=== PATIENT | female | born 1960 | race Caucasian/White ===

== ENCOUNTER 2016-11-30 22:53 | Inpatient (IN) | payer MEDICAID ==
[~2016-11-30] VITALS: Ht 167.6 cm; Wt 89.9 kg
[~2016-11-30 22:53] MED LIST: CHLO25TA PO; HYDR-3341 PO; HYDR25TA6 PO; LEVO50TA PO; LISI-167 PO; SERT100T5 PO
[2016-11-30] MEDS ORDERED: SODIUM CHLORIDE 0.9% 1,000ML IVBOLUS ONE (23:30)
[2016-11-30] MEDS ORDERED: SODIUM CHLORIDE FLUSH 10ML SYR IVF ONE (23:30)
[2016-11-30 23:44] LABS: BLOOD UREA NITROGEN 20 mg/dL (7-18)
[2016-11-30 23:50] LABS: ASPARTATE AMINO TRANSFERASE 8 U/L (15-37); IS PT STATUS REG ER OR PRE ER? YES
[2016-12-01 02:06] VITALS: BP 133/78
[2016-12-01] MEDS ORDERED: PNEUMOCOCCAL 23 VACCINE IM-VACC ONE (03:00)
[2016-12-01] MEDS: ENOXAPARIN 40 MG/0.4 ML SQ SCH (04:02)
[2016-12-01] MEDS: POTASSIUM CHLORIDE 20 MEQ, MAGNESIUM SULFATE 1 GM, THIAMINE 100 MG, FOLIC ACID 1 MG, MV... IV SCH (04:02)
[2016-12-01 05:14] LABS: IS PT STATUS REG ER OR PRE ER? NO
[2016-12-01] MEDS ORDERED: CALCIUM CHLORIDE 13.6 MEQ in SODIUM CHLORIDE 0.9% 100 ML IV ONE (05:30)
[2016-12-01] MEDS: ATORVASTATIN 80 MG TABLET PO SCH ×2 (06:34→22:06)
[2016-12-01] MEDS: ASPIRIN 81 MG TABLET CHEW PO SCH (08:17)
[2016-12-01 08:30] VITALS: BP 125/72
[2016-12-01] MEDS ORDERED: REGADENOSON 0.4 MG/5 ML SYRINGE ONE (11:37)
[2016-12-01 13:53] LABS: IS PT STATUS REG ER OR PRE ER? NO
[2016-12-01 15:00] VITALS: BP 155/78
[2016-12-01 20:00] VITALS: BP 129/75
[2016-12-02] MEDS: POTASSIUM CHLORIDE 20 MEQ, MAGNESIUM SULFATE 1 GM, THIAMINE 100 MG, FOLIC ACID 1 MG, MV... IV SCH (01:42)
[2016-12-02 01:43] VITALS: BP 122/74
[2016-12-02] MEDS: METOPROLOL SUCCINATE 25 MG TAB.ER.24H PO SCH (05:21)
[2016-12-02] MEDS: ENOXAPARIN 40 MG/0.4 ML SQ SCH (05:21)
[2016-12-02] MEDS ORDERED: SODIUM CHLORIDE 0.9% 1,000 ML IV SCH (06:00)
[2016-12-02 06:34] LABS: BLOOD UREA NITROGEN 21 mg/dL (7-18)
[2016-12-02] MEDS: ASPIRIN 81 MG TABLET CHEW PO SCH (08:26)
[2016-12-02] MEDS: LOSARTAN 25MG TABLET PO SCH ×2 (08:26→21:17)
[2016-12-02] MEDS ORDERED: LOSARTAN 25MG TABLET PO SCH (09:00)
[2016-12-02 09:32] VITALS: BP 116/63
[2016-12-02] MEDS ORDERED: HEPARIN 1,000 UNITS/ML, 10ML ONE (12:06)
[2016-12-02] MEDS ORDERED: MIDAZOLAM 1 MG/ML, 5ML ONE (12:06)
[2016-12-02] MEDS ORDERED: TICAGRELOR 90 MG TABLET ONE (12:06)
[2016-12-02] MEDS ORDERED: FENTANYL PF 100 MCG/2ML ONE ×2 (12:06→12:43)
[2016-12-02] MEDS ORDERED: BIVALIRUDIN 250 MG ONE ×2 (12:06→12:24)
[2016-12-02] MEDS ORDERED: VERAPAMIL 2.5 MG/ML, 2ML ONE (12:06)
[2016-12-02] MEDS ORDERED: LIDOCAINE 2%, 20ML ONE (12:07)
[2016-12-02] MEDS ORDERED: ACETAMINOPHEN 325 MG TABLET PO PRN (13:30)
[2016-12-02 14:00] VITALS: BP 144/80
[2016-12-02] MEDS ORDERED: CHLORHEXIDINE MOUTHWASH 15 ML UDC MM PRN (16:00)
[2016-12-02] MEDS ORDERED: METOPROLOL TARTRATE 25 MG TABLET PO ONE (16:00)
[2016-12-02] MEDS ORDERED: INSULIN ASPART 100 UNITS/ML, PEN SQ-INSULIN SCH (16:00)
[2016-12-02 16:32] LABS: ASPARTATE AMINO TRANSFERASE 12 U/L (15-37); BLOOD UREA NITROGEN 16 mg/dL (7-18)
[2016-12-02 17:33] VITALS: BP 128/82
[2016-12-02 19:34] VITALS: BP 149/87
[2016-12-02] MEDS: ATORVASTATIN 80 MG TABLET PO SCH (21:17)
[2016-12-02] MEDS: MUPIROCIN OINT 2%, 22GM TP SCH (21:17)
[2016-12-03 02:53] VITALS: BP 119/70
[2016-12-03] MEDS: ENOXAPARIN 40 MG/0.4 ML SQ SCH (03:08)
[2016-12-03] MEDS: POTASSIUM CHLORIDE 20 MEQ, MAGNESIUM SULFATE 1 GM, THIAMINE 100 MG, FOLIC ACID 1 MG, MV... IV SCH (03:08)
[2016-12-03] MEDS: METOPROLOL SUCCINATE 25 MG TAB.ER.24H PO SCH (06:28)
[2016-12-03 07:11] VITALS: BP 160/78
[2016-12-03] MEDS ORDERED: VANCOMYCIN 1,200 MG in SODIUM CHLORIDE 0.9% 250 ML IVPB PRN ×2 (07:30→13:30)
[2016-12-03] MEDS ORDERED: CEFUROXIME 1.5 GM in SODIUM CHLORIDE 0.9% 50 ML IVPB PRN ×2 (07:30→13:30)
[2016-12-03] MEDS: ASPIRIN 81 MG TABLET CHEW PO SCH (09:00)
[2016-12-03] MEDS: LOSARTAN 25MG TABLET PO SCH ×2 (09:00→22:15)
[2016-12-03] MEDS: MUPIROCIN OINT 2%, 22GM TP SCH (10:04)
[2016-12-03 10:05] VITALS: BP_SYST 143; BP_SYST 151; BP_DIAS 73; BP_DIAS 84
[2016-12-03] MEDS ORDERED: MIDAZOLAM 10MG/2 ML ONE (12:03)
[2016-12-03] MEDS ORDERED: FENTANYL PF 1000 MCG/20ML ONE (12:03)
[2016-12-03] MEDS ORDERED: PROPOFOL 10 MG/ML, 20ML ONE (12:26)
[2016-12-03] MEDS ORDERED: ROCURONIUM 10 MG/ML ONE (12:26)
[2016-12-03] MEDS ORDERED: POTASSIUM CHLORIDE 80 MEQ, SODIUM BICARBONATE 8.4% 10 MEQ, MAGNESIUM SULFATE 0.5 GM, LI... IV PRN (13:30)
[2016-12-03] MEDS ORDERED: EPINEPHRINE 2 MG in SODIUM CHLORIDE 0.9% 248 ML IV SCH (13:30)
[2016-12-03] MEDS ORDERED: MANNITOL PMX 20% 500 ML IVPB PRN (13:30)
[2016-12-03] MEDS ORDERED: REGULAR INSULIN 62.5 UNITS in SODIUM CHLORIDE 0.9% 249.375 ML IV PRN ×2 (13:30→15:41)
[2016-12-03] MEDS ORDERED: DEXMEDETOMIDINE 200 MCG in SODIUM CHLORIDE 0.9% 48 ML IV SCH (13:30)
[2016-12-03] MEDS ORDERED: ALBUMIN HUMAN 5% 500 ML IV ONE (13:30)
[2016-12-03] MEDS ORDERED: PHENYLEPHRINE 10 MG in SODIUM CHLORIDE 0.9% 249 ML IV PRN ×2 (13:30→15:41)
[2016-12-03] MEDS ORDERED: PAPAVERINE 30 MG/ML, 2ML IVPush ONE (14:17)
[2016-12-03] MEDS ORDERED: HEPARIN 1,000 UNITS/ML, 30ML IVPush ONE (14:19)
[2016-12-03] MEDS ORDERED: NITROGLYCERIN/D5W PMX 250 ML IV PRN (15:41)
[2016-12-03] MEDS ORDERED: DEXMEDETOMIDINE 200 MCG in SODIUM CHLORIDE 0.9% 48 ML IV PRN (15:41)
[2016-12-03] MEDS ORDERED: DOBUTAMINE 250 MG in SODIUM CHLORIDE 0.9% 230 ML IV PRN (15:41)
[2016-12-03] MEDS ORDERED: SODIUM CHLORIDE 0.9% 1,000 ML IV PRN (15:41)
[2016-12-03] MEDS ORDERED: ACETAMINOPHEN 325 MG TABLET PO PRN (16:00)
[2016-12-03] MEDS ORDERED: ACETAMINOPHEN 650 MG SUPP PR PRN (16:00)
[2016-12-03] MEDS ORDERED: ONDANSETRON 2MG/ML, 2ML IVPush PRN (16:00)
[2016-12-03] MEDS ORDERED: VANCOMYCIN 1,200 MG in SODIUM CHLORIDE 0.9% 250 ML IVPB SCH (16:00)
[2016-12-03] MEDS ORDERED: DEXTROSE 50%, 50ML SYRINGE IVPush PRN (16:00)
[2016-12-03] MEDS ORDERED: GLUCAGON 1 MG IM PRN (16:00)
[2016-12-03] MEDS ORDERED: BISACODYL 10 MG SUPP PR PRN (16:00)
[2016-12-03] MEDS ORDERED: EPINEPHRINE 2 MG in SODIUM CHLORIDE 0.9% 248 ML IV PRN (16:00)
[2016-12-03] MEDS ORDERED: CEFUROXIME 1.5 GM in SODIUM CHLORIDE 0.9% 50 ML IVPB SCH (16:00)
[2016-12-03] MEDS ORDERED: DEXTROSE 4 GM TAB.CHEW PO PRN (16:00)
[2016-12-03] MEDS ORDERED: MEPERIDINE/PF 25MG/0.5ML IVPush PRN (16:00)
[2016-12-03] MEDS ORDERED: PROCHLORPERAZINE 5 MG/ML, 2ML IVPush PRN (16:00)
[2016-12-03] MEDS ORDERED: MIDAZOLAM 1 MG/ML, 5ML IVPush PRN (16:00)
[2016-12-03] MEDS: KSCALE TO 4.5 IV SCH ×2 (16:00→22:00)
[2016-12-03] MEDS ORDERED: SODIUM BICARB 8.4%, 50ML SYRINGE IV PRN (16:00)
[2016-12-03] MEDS ORDERED: BISACODYL 5 MG EC TABLET PO PRN (16:00)
[2016-12-03] MEDS ORDERED: PROTAMINE SULFATE 10 MG/ML, 25ML ONE (16:06)
[2016-12-03] MEDS ORDERED: AMINOCAPROIC ACID 250 MG/ML, 20ML ONE (16:06)
[2016-12-03] MEDS ORDERED: HEPARIN 1,000 UNITS/ML, 30ML ONE (16:06)
[2016-12-03] MEDS ORDERED: CALCIUM CHLORIDE 10%, 10ML SYR ONE (16:06)
[2016-12-03] MEDS ORDERED: ALBUMIN HUMAN 25% 50 ML ONE (16:06)
[2016-12-03] MEDS ORDERED: LIDOCAINE 2% 100MG/5ML SYRINGE ONE (16:06)
[2016-12-03 16:13] LABS: ABG COLLECTION SITE ARTERIAL LINE
[2016-12-03] MEDS: morphine SULFATE 10 MG/ML, 1ML IVPush PRN ×3 (16:29→21:01)
[2016-12-03] MEDS: MAGNESIUM SULFATE 1 GM in SODIUM CHLORIDE 0.9% 50 ML IVPB SCH (16:58)
[2016-12-03] MEDS ORDERED: POTASSIUM CHLORIDE 20 MEQ in SODIUM CHLORIDE 0.9% 250 ML IV ONE (18:30)
[2016-12-03] MEDS ORDERED: POTASSIUM CHLORIDE PMX 100 ML IVPB ONE (18:30)
[2016-12-03] MEDS: LACTATED RINGERS 500 ML IVBOLUS PRN ×2 (20:08→21:45)
[2016-12-03] MEDS: SODIUM CHLORIDE FLUSH 10ML SYR IVF SCH (21:33)
[2016-12-03] MEDS: DOCUSATE 100 MG CAPSULE PO SCH (22:15)
[2016-12-03] MEDS: ATORVASTATIN 80 MG TABLET PO SCH (22:15)
[2016-12-03] MEDS: MUPIROCIN OINT 2%, 22GM NAS SCH (22:16)
[2016-12-03] MEDS: HYDROcodone/APAP 10/325 MG TABLET PO PRN (22:36)
[2016-12-03] MEDS: OXYcodone IR 5MG TABLET PO PRN (23:56)
[2016-12-03] MEDS: CEFUROXIME 1.5 GM in SODIUM CHLORIDE 0.9% 50 ML IVPB SCH (23:59)
[2016-12-04] MEDS: INSULIN ASPART 100 UNITS/ML, PEN SQ-INSULIN PRN ×2 (00:14→02:12)
[2016-12-04] MEDS: VANCOMYCIN 1,200 MG in SODIUM CHLORIDE 0.9% 250 ML IVPB SCH ×2 (01:29→13:48)
[2016-12-04] MEDS: POTASSIUM CHLORIDE 20 MEQ, MAGNESIUM SULFATE 1 GM, THIAMINE 100 MG, FOLIC ACID 1 MG, MV... IV SCH (01:33)
[2016-12-04 03:57] LABS: ABG COLLECTION SITE NOT DOCUMENTED
[2016-12-04] MEDS: KSCALE TO 4.5 IV SCH ×3 (04:00→16:00)
[2016-12-04 04:05] LABS: BLOOD UREA NITROGEN 11 mg/dL (7-18)
[2016-12-04] MEDS: HYDROcodone/APAP 10/325 MG TABLET PO PRN ×2 (05:20→13:53)
[2016-12-04] MEDS: INSULIN ASPART 100 UNITS/ML, PEN SQ-INSULIN SCH ×4 (05:20→21:00)
[2016-12-04] MEDS: OXYcodone IR 5MG TABLET PO PRN ×2 (07:43→21:05)
[2016-12-04] MEDS: LOSARTAN 25MG TABLET PO SCH ×2 (09:00→23:13)
[2016-12-04] MEDS: FUROSEMIDE 20 MG/2 ML IV SCH (09:03)
[2016-12-04] MEDS: DOCUSATE 100 MG CAPSULE PO SCH ×2 (09:04→21:05)
[2016-12-04] MEDS: PANTOPRAZOLE 40 MG IV IVPush SCH (09:04)
[2016-12-04] MEDS: MUPIROCIN OINT 2%, 22GM NAS SCH ×2 (09:04→23:13)
[2016-12-04] MEDS: SODIUM CHLORIDE FLUSH 10ML SYR IVF SCH ×3 (09:04→23:14)
[2016-12-04] MEDS: ASPIRIN 81 MG TABLET EC PO SCH (09:04)
[2016-12-04] MEDS: METOPROLOL TARTRATE 25 MG TABLET PO/NG SCH ×2 (09:05→21:05)
[2016-12-04] MEDS: CEFUROXIME 1.5 GM in SODIUM CHLORIDE 0.9% 50 ML IVPB SCH (12:48)
[2016-12-04] MEDS ORDERED: POTASSIUM CHLORIDE PMX 100 ML IV ONE (13:00)
[2016-12-04] MEDS: CHLORHEXIDINE MOUTHWASH 15 ML UDC MM SCH (16:00)
[2016-12-04] MEDS: MAGNESIUM SULFATE 1 GM in SODIUM CHLORIDE 0.9% 50 ML IVPB SCH (16:55)
[2016-12-04] MEDS ORDERED: SIMVASTATIN 20 MG TABLET PO SCH (21:00)
[2016-12-04 21:12] VITALS: BP 121/73
[2016-12-04] MEDS: ATORVASTATIN 80 MG TABLET PO SCH (23:13)
[2016-12-05] MEDS: OXYcodone IR 5MG TABLET PO PRN ×5 (01:06→20:21)
[2016-12-05] MEDS: POTASSIUM CHLORIDE 20 MEQ, MAGNESIUM SULFATE 1 GM, THIAMINE 100 MG, FOLIC ACID 1 MG, MV... IV SCH (01:06)
[2016-12-05 01:07] VITALS: BP 126/77
[2016-12-05] MEDS: CHLORHEXIDINE MOUTHWASH 15 ML UDC MM SCH ×2 (05:06→17:12)
[2016-12-05 05:46] LABS: BLOOD UREA NITROGEN 12 mg/dL (7-18)
[2016-12-05 06:59] VITALS: BP 113/75
[2016-12-05] MEDS: INSULIN ASPART 100 UNITS/ML, PEN SQ-INSULIN SCH ×4 (07:00→20:26)
[2016-12-05] MEDS: DOCUSATE 100 MG CAPSULE PO SCH ×2 (08:20→20:22)
[2016-12-05] MEDS: SODIUM CHLORIDE FLUSH 10ML SYR IVF SCH ×4 (08:21→20:22)
[2016-12-05] MEDS: FUROSEMIDE 20 MG/2 ML IV SCH (08:21)
[2016-12-05] MEDS: PANTOPRAZOLE 40 MG IV IVPush SCH (08:21)
[2016-12-05] MEDS: MUPIROCIN OINT 2%, 22GM NAS SCH ×2 (08:21→20:23)
[2016-12-05] MEDS: ASPIRIN 81 MG TABLET EC PO SCH (08:22)
[2016-12-05] MEDS: METOPROLOL TARTRATE 25 MG TABLET PO/NG SCH ×2 (08:22→20:22)
[2016-12-05] MEDS: LOSARTAN 25MG TABLET PO SCH ×2 (08:22→20:22)
[2016-12-05] MEDS: POTASSIUM CHLORIDE 10 MEQ TABLET.ER PO SCH (08:22)
[2016-12-05] MEDS ORDERED: ENOXAPARIN 40 MG/0.4 ML SQ SCH (09:00)
[2016-12-05] MEDS ORDERED: FUROSEMIDE 20 MG/2 ML IV SCH (09:00)
[2016-12-05 12:54] VITALS: BP 132/78
[2016-12-05] MEDS: MAGNESIUM SULFATE 1 GM in SODIUM CHLORIDE 0.9% 50 ML IVPB SCH (17:11)
[2016-12-05 20:16] VITALS: BP 105/61
[2016-12-05] MEDS: ATORVASTATIN 80 MG TABLET PO SCH (20:23)
[2016-12-06] VITALS (8 sets, daily range): BP systolic 81–101; BP diastolic 32–68
[2016-12-06] MEDS: OXYcodone IR 5MG TABLET PO PRN ×4 (01:38→20:41)
[2016-12-06] MEDS: POTASSIUM CHLORIDE 20 MEQ, MAGNESIUM SULFATE 1 GM, THIAMINE 100 MG, FOLIC ACID 1 MG, MV... IV SCH (01:39)
[2016-12-06] MEDS: CHLORHEXIDINE MOUTHWASH 15 ML UDC MM SCH (05:01)
[2016-12-06 05:45] LABS: BLOOD UREA NITROGEN 15 mg/dL (7-18)
[2016-12-06] MEDS: PANTOPRAZOLE 40 MG IV IVPush SCH (08:18)
[2016-12-06] MEDS: MUPIROCIN OINT 2%, 22GM NAS SCH ×2 (08:18→21:59)
[2016-12-06] MEDS: LOSARTAN 25MG TABLET PO SCH ×2 (08:18→21:00)
[2016-12-06] MEDS: SODIUM CHLORIDE FLUSH 10ML SYR IVF SCH ×4 (08:19→22:01)
[2016-12-06] MEDS: DOCUSATE 100 MG CAPSULE PO SCH ×2 (08:20→21:59)
[2016-12-06] MEDS: METOPROLOL TARTRATE 25 MG TABLET PO/NG SCH ×2 (08:20→21:00)
[2016-12-06] MEDS: CLOPIDOGREL 75 MG TABLET PO SCH (08:20)
[2016-12-06] MEDS: INSULIN ASPART 100 UNITS/ML, PEN SQ-INSULIN SCH ×4 (08:28→21:59)
[2016-12-06] MEDS: ASPIRIN 81 MG TABLET EC PO SCH (08:32)
[2016-12-06] MEDS: POTASSIUM CHLORIDE 10 MEQ TABLET.ER PO SCH (08:32)
[2016-12-06] MEDS ORDERED: CLOPIDOGREL 75 MG TABLET PO SCH (09:00)
[2016-12-06] MEDS: ENOXAPARIN 40 MG/0.4 ML SQ SCH (21:00)
[2016-12-06] MEDS: FUROSEMIDE 20 MG/2 ML IV SCH (21:00)
[2016-12-06] MEDS: ATORVASTATIN 80 MG TABLET PO SCH (21:59)
[2016-12-07 01:56] VITALS: BP 95/67
[2016-12-07] MEDS: POTASSIUM CHLORIDE 20 MEQ, MAGNESIUM SULFATE 1 GM, THIAMINE 100 MG, FOLIC ACID 1 MG, MV... IV SCH (02:06)
[2016-12-07] MEDS: OXYcodone IR 5MG TABLET PO PRN ×3 (05:26→14:06)
[2016-12-07 06:26] LABS: BLOOD UREA NITROGEN 18 mg/dL (7-18)
[2016-12-07 07:05] VITALS: BP 102/66
[2016-12-07] MEDS: INSULIN ASPART 100 UNITS/ML, PEN SQ-INSULIN SCH (08:30)
[2016-12-07] MEDS ORDERED: LOSARTAN 25MG TABLET PO SCH (09:00)
[2016-12-07] MEDS: PANTOPRAZOLE 40 MG IV IVPush SCH (09:12)
[2016-12-07] MEDS: ASPIRIN 81 MG TABLET EC PO SCH (09:13)
[2016-12-07] MEDS: MUPIROCIN OINT 2%, 22GM NAS SCH ×2 (09:13→20:35)
[2016-12-07] MEDS: CLOPIDOGREL 75 MG TABLET PO SCH (09:13)
[2016-12-07] MEDS: METOPROLOL TARTRATE 25 MG TABLET PO/NG SCH ×2 (09:13→20:36)
[2016-12-07] MEDS: POTASSIUM CHLORIDE 10 MEQ TABLET.ER PO SCH (09:13)
[2016-12-07] MEDS: DOCUSATE 100 MG CAPSULE PO SCH ×2 (09:13→20:36)
[2016-12-07] MEDS: SODIUM CHLORIDE FLUSH 10ML SYR IVF SCH ×4 (09:14→20:35)
[2016-12-07] MEDS: FUROSEMIDE 20 MG/2 ML IV SCH (11:30)
[2016-12-07 13:15] VITALS: BP 108/68
[2016-12-07] MEDS: MAGNESIUM HYDROXIDE 8%, 30ML UDC PO PRN (14:06)
[2016-12-07] MEDS: HYDROcodone/APAP 10/325 MG TABLET PO PRN (18:43)
[2016-12-07 19:26] VITALS: BP 104/68
[2016-12-07 20:26] VITALS: BP 105/66
[2016-12-07] MEDS: ENOXAPARIN 40 MG/0.4 ML SQ SCH (20:36)
[2016-12-07] MEDS: ATORVASTATIN 80 MG TABLET PO SCH (20:36)
[2016-12-08] MEDS: OXYcodone IR 5MG TABLET PO PRN (01:24)
[2016-12-08 02:01] VITALS: BP 139/73
[2016-12-08 05:19] LABS: BLOOD UREA NITROGEN 18 mg/dL (7-18)
[2016-12-08] MEDS: HYDROcodone/APAP 10/325 MG TABLET PO PRN ×4 (07:46→23:39)
[2016-12-08] MEDS: DOCUSATE 100 MG CAPSULE PO SCH ×2 (07:47→19:59)
[2016-12-08] MEDS: PANTOPRAZOLE 40 MG IV IVPush SCH (07:47)
[2016-12-08] MEDS: ASPIRIN 81 MG TABLET EC PO SCH (07:47)
[2016-12-08] MEDS: METOPROLOL TARTRATE 25 MG TABLET PO/NG SCH ×2 (07:47→19:59)
[2016-12-08] MEDS: FOLIC ACID 1 MG TABLET PO SCH (07:47)
[2016-12-08] MEDS: THIAMINE 100MG TABLET PO SCH (07:47)
[2016-12-08] MEDS: POTASSIUM CHLORIDE 10 MEQ TABLET.ER PO SCH (07:47)
[2016-12-08] MEDS: FUROSEMIDE 20 MG TABLET PO SCH (07:47)
[2016-12-08] MEDS: CLOPIDOGREL 75 MG TABLET PO SCH (07:47)
[2016-12-08] MEDS: SODIUM CHLORIDE FLUSH 10ML SYR IVF SCH ×4 (07:48→20:00)
[2016-12-08] MEDS: MUPIROCIN OINT 2%, 22GM NAS SCH (07:48)
[2016-12-08 07:55] VITALS: BP 122/77
[2016-12-08 15:30] VITALS: BP 112/72
[2016-12-08 19:05] VITALS: BP 119/80
[2016-12-08] MEDS: ENOXAPARIN 40 MG/0.4 ML SQ SCH (19:59)
[2016-12-08] MEDS: ATORVASTATIN 80 MG TABLET PO SCH (19:59)
[2016-12-09 03:28] VITALS: BP 102/62
[2016-12-09 06:11] LABS: BLOOD UREA NITROGEN 17 mg/dL (7-18)
[2016-12-09 06:40] VITALS: BP 129/78
[2016-12-09] MEDS ORDERED: ASPI-621 PO (07:06)
[2016-12-09] MEDS ORDERED: POTA10TA5 PO (07:06)
[2016-12-09] MEDS ORDERED: DOCU-30 PO (07:06)
[2016-12-09] MEDS ORDERED: THIA100T6 PO (07:06)
[2016-12-09] MEDS ORDERED: FOLI-17 PO (07:06)
[2016-12-09] MEDS ORDERED: FURO20TA3 PO (07:06)
[2016-12-09] MEDS ORDERED: CLOP75TA PO (07:06)
[2016-12-09] MEDS ORDERED: HYDR-3307 PO (07:06)
[2016-12-09] MEDS ORDERED: METO25TA35 PO/NG (07:06)
[2016-12-09] MEDS ORDERED: ATOR80TA75 PO (07:06)
[2016-12-09] MEDS: CLOPIDOGREL 75 MG TABLET PO SCH (08:49)
[2016-12-09] MEDS: METOPROLOL TARTRATE 25 MG TABLET PO/NG SCH (08:49)
[2016-12-09] MEDS: THIAMINE 100MG TABLET PO SCH (08:49)
[2016-12-09] MEDS: ASPIRIN 81 MG TABLET EC PO SCH (08:50)
[2016-12-09] MEDS: DOCUSATE 100 MG CAPSULE PO SCH (08:50)
[2016-12-09] MEDS: FOLIC ACID 1 MG TABLET PO SCH (08:50)
[2016-12-09] MEDS: POTASSIUM CHLORIDE 10 MEQ TABLET.ER PO SCH (08:50)
[2016-12-09] MEDS: FUROSEMIDE 20 MG TABLET PO SCH (08:50)
[2016-12-09] MEDS: MAGNESIUM HYDROXIDE 8%, 30ML UDC PO PRN (08:50)
[2016-12-09] MEDS: HYDROcodone/APAP 10/325 MG TABLET PO PRN (10:36)
[2016-12-09 14:14] VITALS: BP 119/74
== END 2016-12-09 17:30 | DRG 234 ==
LOC: ED 23:59 → INTOOBSV 12-01 00:17 → EDIP 12-01 00:17 → 5SO 12-01 01:55 → OBSVTOIN 12-02 15:31 → CCU 12-03 13:56 → 5SO 12-04 18:42
PROVIDERS: ADMIT Internal Medicine; ATTEND Internal Medicine
PROC: 4A023N7 Measurement of Cardiac Sampling and Pressure, Left Heart, Percutaneous Approach (ICD-10-PCS; principal; 2016-12-02)
PROC: B2111ZZ Fluoroscopy of Multiple Coronary Arteries using Low Osmolar Contrast (ICD-10-PCS; 2016-12-02)
PROC: B2151ZZ Fluoroscopy of Left Heart using Low Osmolar Contrast (ICD-10-PCS; 2016-12-02)
PROC: 021109W Bypass Coronary Artery, Two Arteries from Aorta with Autologous Venous Tissue, Open Approach (ICD-10-PCS; 2016-12-02)
PROC: 06BP4ZZ Excision of Right Saphenous Vein, Percutaneous Endoscopic Approach (ICD-10-PCS; 2016-12-02)
PROC: 02100Z9 Bypass Coronary Artery, One Artery from Left Internal Mammary, Open Approach (ICD-10-PCS; 2016-12-02)
PROC: 5A1221Z Performance of Cardiac Output, Continuous (ICD-10-PCS; 2016-12-02)
PROC: B246ZZ4 Ultrasonography of Right and Left Heart, Transesophageal (ICD-10-PCS; 2016-12-02)
DX: I21.4 Non-ST elevation (NSTEMI) myocardial infarction (principal); Z99.11 Dependence on respirator [ventilator] status; R07.89 Other chest pain; I10 Essential (primary) hypertension; M19.90 Unspecified osteoarthritis, unspecified site; F32.9 Major depressive disorder, single episode, unspecified; G47.33 Obstructive sleep apnea (adult) (pediatric); Z83.3 Family history of diabetes mellitus; Z82.49 Family history of ischemic heart disease and other diseases of the circulatory system; E83.51 Hypocalcemia; Z91.5 Personal history of self-harm; E78.5 Hyperlipidemia, unspecified; I25.10 Atherosclerotic heart disease of native coronary artery without angina pectoris; I25.82 Chronic total occlusion of coronary artery; Z79.899 Other long term (current) drug therapy; I25.5 Ischemic cardiomyopathy; F17.200 Nicotine dependence, unspecified, uncomplicated; F10.10 Alcohol abuse, uncomplicated
CPT/HCPCS: 36415; 36600; 71010; 78452; 80048; 80053; 80307; 81003; 82040; 82330; 82800; 82803; 82810; 82947; 82962; 83036; 83735; 84132; 84295; 84484; 85014; 85018; 85025; 85049; 85347; 85610; 85730; 86850; 86900; 86923; 87081; 90732; 93005; 93017; 93312; 93321; 93325; 93458; 93880; 94002; 94150; 99156; 99157; C1894; C8929; G0378; J0583; J0697; J1644; J1650; J1815; J2250; J2704; J2720; J2785; J3010; J3370; J3411; J3475; J3480; J3490; J7120; P9045; P9047; A9502; C1751; C1760; C9113; C9898; J0171; J1940; J2270; J2370; J2440; J7030; J7050; Q9967

== ENCOUNTER 2017-02-18 12:10 | Emergency (ER) | payer MEDICAID ==
[~2017-02-18] VITALS: Ht 165.1 cm; Wt 70.5 kg
[~2017-02-18 12:10] MED LIST changes: +ASPI-621 PO; +ATOR-2 PO; +CLOP75TA PO; +DOCU-131 PO; +FOLI-17 PO; +FURO20TA3 PO; +HYDR-3307 PO; +METO25TA35 PO/NG; +POTA10TA5 PO; +THIA100T6 PO
[2017-02-18 12:48] LABS: HEMATOCRIT 41.1 % (34.6-47.8); HEMOGLOBIN 13.5 g/dL (11.7-16.4); WHITE BLOOD COUNT 8.4 x10^3/uL (3.4-10)
[2017-02-18 12:57] LABS: BLOOD UREA NITROGEN 19 mg/dL (7-18)
[2017-02-18 13:04] LABS: IS PT STATUS REG ER OR PRE ER? YES
[2017-02-18 15:22] VITALS: BP 153/77
== END 2017-02-18 15:24 | disposition home or self-care (01) ==
LOC: ED 12:28
DX: B34.9 Viral infection, unspecified (principal); I10 Essential (primary) hypertension; F32.9 Major depressive disorder, single episode, unspecified; Z87.891 Personal history of nicotine dependence
CPT/HCPCS: 36415; 71020; 80048; 82040; 84484; 85025; 85610; 85730; 93005; 99285

== ENCOUNTER 2017-03-23 13:39 | Emergency (ER) | payer MEDICAID ==
[~2017-03-23] VITALS: Ht 160 cm; Wt 78.0 kg
[2017-03-23 16:51] VITALS: BP 131/77
== END 2017-03-23 17:02 | disposition home or self-care (01) ==
LOC: ED 15:50
DX: S22.32XA Fracture of one rib, left side, initial encounter for closed fracture (principal); Z87.891 Personal history of nicotine dependence; I10 Essential (primary) hypertension; Y04.0XXA Assault by unarmed brawl or fight, initial encounter; Y93.89 Activity, other specified; Y99.8 Other external cause status; Y92.89 Other specified places as the place of occurrence of the external cause
CPT/HCPCS: 70450; 72072; 99284